=== PATIENT | male | born 1980 | race Caucasian/White ===

== ENCOUNTER 2019-03-12 11:28 | Outpatient (CLI) | payer OTHER | END 2019-03-12 11:29 | disposition home or self-care (01) | LOC: SC 11:28 | PROVIDERS: ATTEND Internal Medicine Pulmonary Disease | DX: G47.10 Hypersomnia, unspecified (principal); G47.8 Other sleep disorders; R06.83 Snoring; R06.81 Apnea, not elsewhere classified | CPT/HCPCS: 99203; 99212 ==

== ENCOUNTER → 2019-05-15 | Outpatient (CLI) | payer OTHER | LOC: SC 19:30 | PROVIDERS: ATTEND Internal Medicine Pulmonary Disease | DX: G47.33 Obstructive sleep apnea (adult) (pediatric) (principal) | CPT/HCPCS: 95806 ==

== ENCOUNTER 2019-07-02 09:06 | Outpatient (CLI) | payer OTHER ==
--- NOTE | 2019-07-02 12:57 | SLEEP CARE CONSULTATION ---
Information from patient questionnaire entered by Amelia Bower. I have reviewed and concur with the information entered by Amelia Bower. This document represents the service I personally performed and the decisions made by me, Stella Corrales MD, [facility]. History of Present Illness Initial [place] Sleepiness Scale score: 9 Additional HPI information: HPI: Mr. Lerner returned for follow up of the sleep study he had on 05/15/2019. The test showed mild obstructive sleep apnea-hypopnea with an AHI of 12.5 and reed oxygen saturation of 87%. The respiratory events occurred almost exclusively during supine sleep. The patient was informed of these findings. I explained to him the patho physiology behind obstructive sleep apnea. We then spent quite a bit of time discussing different treatment options. For mild obstructive sleep apnea, surgery and oral appliance are alternatives to nasal CPAP therapy but in moderate or severe cases, nasal CPAP is the most effective and reliable treatment. Weight loss in an obese individual is strongly recommended. After some discussion, he opted to go with the nasal CPAP therapy. I explained to him how CPAP machine works and what to expect when using the machine. He is encouraged to use CPAP every night especially in the first 2 to 3 nights in order to get used to it. He should call his CPAP supplier or me to discuss any mechanical problem that may occur. If he snores or feels like he is not getting enough air from the machine, he should notify me and I will increase the pressure. Allergies and Home Medications Home medication list reviewed: Yes Review of Systems Review of systems same as previous: Yes Impression and Plan IMPRESSION: 1. Obstructive Sleep Apnea-Hypopnea Syndrome, mild and positional associated with mild hypoxemia. Possibly, this is the cause of the patients symptoms of unrefreshed sleep, and excessive daytime sleepiness. As mentioned above, the patient will be started on an autoCPAP set between 5 and 15 cmH2O. Depending on his response and compliance he may be brought back for an overnight CPAP titration study. PLAN: 1. Prescription made for an autoCPAP, heated humidifier, and related supplies. 2. Attempt to lose weight and avoid alcohol consumption near bedtime. 3. Return for follow up after one month on the new machine. This visit is time-based and I spent 15 minutes with the patient and more than 50% of the time was spent counseling the patient. I spent 100% of this 15 minute visit face to face with the patient with greater than 50% of this was spent time counseling the patient and coordination of care.
== END 2019-07-02 09:07 | disposition home or self-care (01) ==
LOC: SC 09:06
PROVIDERS: ATTEND Internal Medicine Pulmonary Disease
DX: G47.33 Obstructive sleep apnea (adult) (pediatric) (principal)
CPT/HCPCS: 99212; 99213

== ENCOUNTER 2020-08-30 10:07 | Outpatient (CLI) | payer OTHER | END 2020-08-30 10:08 | disposition EMS.NT | LOC: EMS 10:07 | PROVIDERS: ATTEND Surgery | DX: Z04.1 Encounter for examination and observation following transport accident (principal) ==